=== PATIENT | female | born 1975 | race Caucasian/White ===

== ENCOUNTER 2023-11-07 13:13 | Outpatient (OUT) | payer MEDICAID, SELFPAY ==
--- NOTE | 2023-11-07 15:16 | RT_ITS ---
[facility] Test Date: 2023-11-07 Pat Name: YUSUF CARRILLO Department: Room: - Gender: Female Hospice Volunteer Coordinator: Jaren Barnett RRT : 1975 Requested By: CHERI MCKEON Order Number: [id number] Reading MD: Pantera Champagne Interpretive Statements Pulmonary function testing was completed according to ATS criteria. Findings were considered accurate and reproducible. Both pre- and post-bronchodilator values utilized for spirometry. Spirometry (based on pre-bronchodilator values): -FEV1/FVC: Low normal/Reduced @ 70% -FEV1: Normal @ 88% -FVC: Normal @ 100% -There is a partial bronchodilator response in FEV1 which meets >200mL increase but <12% change. Lung volumes by plethysmography (based on pre-bronchodilator values): -RV: Increased @ 155% -TLC: Increased @ 123% Diffusion capacity: -DLCO: Normal @ 10% when corrected for Hb 14g/dL Flow-volume loop: -Mild obstructive pattern Impressions: -Spirometry suggests mild obstruction with near positive bronchodilator response. An elevated RV and TLC suggest air trapping and hyperinflation respectively. The diffusion capacity is normal. Study consistent with asthma with partial loss of bronchodilator response vs. development of asthma-COPD overlap given smoking history. Clinical correlation required. Electronically Signed On 11-12-2023 7:28:14 EST by Pantera Champagne
[2023-11-07] MEDS: ALBUTEROL SULFATE 2.5 MG/3 ML VIAL NEB IH (15:43)
== END 2023-11-07 13:14 | disposition home or self-care (01) ==
PROVIDERS: PCP Family Medicine; Visit Provider Family Medicine
DX: J45.40 Moderate persistent asthma, uncomplicated (principal)
CPT/HCPCS: 36415; 85018; 94060; 94726; 94729; 99406

== ENCOUNTER 2023-12-31 14:23 | Outpatient (OUT) | payer MEDICAID, SELFPAY ==
--- NOTE | 2023-12-31 14:25 | CT_ITS ---
[address] [address] Patient Name: YUSUF CARRILLO MRN: [id number] date: 1975 Sex: F Assigned Patient Location: CT Current Patient Location: Accession/Order Number: [id number] Exam Date: 12/31/2023 14:32 Report Date: 01/01/2024 07:26 At the request of: TUAN BOLIVAR Procedure: CT lung screening low-dose EXAMINATION: CT lung screening low-dose HISTORY: Nicotine Dependence , chronic shortness of breath and cough COMPARISON: No relevant comparison available. TECHNIQUE: Axial, Coronal, and Sagittal images were created without the administration of IV contrast material. Dose reduction techniques were achieved by using automated exposure control and/or adjustment of mA and/or kV according to patient size and/or use of iterative reconstruction technique. FINDINGS: LUNGS: 5 mm nodule within anterior lateral right upper lobe at level of hilum. 5 mm nodule within posterior left lower lobe. A few scattered 4 mm pleural-based nodules. No overtly suspicious nodules, acute infiltrates, or significant chronic interstitial changes. PLEURA: No mass, effusion, or pneumothorax. VASCULATURE: No abnormality. VARGAS: No mass or pathologic adenopathy. MEDIASTINUM: No mass or pathologic adenopathy. CARDIAC: No enlargement, pericardial thickening, or pericardial effusion. AORTA: No aneurysm or dissection. CHEST WALL: No mass or axillary adenopathy BONES: No bone lesion or fracture. LIMITED ABDOMEN: No suspicious findings. Limited images of the upper abdomen. OTHER: Negative. CT/CT lung screening low-dose IMPRESSION: 1. Lung-RADS Category 3- Probably benign. Probably benign finding(s)- short term follow up suggested; includes nodules with a low likelihood of becoming a clinically active cancer. Six month LDCT. Electronically authenticated by: MARIN SERRATO Date: 01/01/2024 07:26
== END 2023-12-31 14:24 | disposition home or self-care (01) ==
LOC: CT 14:23
PROVIDERS: PCP Family Medicine; Visit Provider Internal Medicine
DX: F17.219 Nicotine dependence, cigarettes, with unspecified nicotine-induced disorders (principal); Z12.2 Encounter for screening for malignant neoplasm of respiratory organs
CPT/HCPCS: 71271

== ENCOUNTER 2024-07-26 12:44 | Outpatient (OUT) | payer MEDICAID, SELFPAY ==
--- NOTE | 2024-07-26 12:54 | CT_ITS ---
The [address] [address] Patient Name: YUSUF CARRILLO MRN: [id number] date: 1975 Sex: F Assigned Patient Location: CT Current Patient Location: CT Accession/Order Number: [id number] Exam Date: 07/26/2024 12:50 Report Date: 07/26/2024 14:03 At the request of: TUAN BOLIVAR Procedure: CT chest wo con EXAMINATION: CT chest wo con, 07/26/2024 12:50 PM EDT HISTORY: multiple pulmonary nodules COMPARISON: CT chest 12/31/2023. TECHNIQUE: CT scan of the chest was performed without IV contrast. CT dose reduction technique was used, including Automated Exposure Control. FINDINGS: CORONARY ARTERIES: Coronary calcifications are absent. Heart size is normal. No pericardial effusion. Normal thoracic vasculature. No thoracic lymphadenopathy. Central tracheobronchial tree is patent. No pleural effusion or pneumothorax. Stable 5 x 3 mm nodule in the right upper lobe on image 35, and stable 5 mm nodule in the left lower lobe on image 60. Other tiny nodules unchanged. Mild paraseptal emphysema. Bones and soft tissues: No suspicious bone findings. Partially imaged upper abdomen: Limited. Small sliding hiatal hernia CT/CT chest wo con IMPRESSION: Stable small pulmonary nodules. Lung-RADS 2 FINDINGS: Solid nodule(s): <6 mm or new <4 mm; part solid nodule(s) <6 mm total diameter on baseline screening; nonsolid nodule(s) (GGN): <20 mm or greater than/equal to 20 mm and unchanged or slowly growing; category 3 or 4 nodules unchanged for greater than/equal to 3 months. MANAGEMENT: Continue annual screening with LDCT in 12 months. Electronically authenticated by: HAILEY HORTON Date: 07/26/2024 14:03
== END 2024-07-26 12:45 | disposition home or self-care (01) ==
LOC: CT 12:44
PROVIDERS: PCP Family Medicine; Visit Provider Internal Medicine
DX: R91.8 Other nonspecific abnormal finding of lung field (principal)
CPT/HCPCS: 71250

== ENCOUNTER 2024-07-27 10:26 | Outpatient (OUT) | payer MEDICAID, SELFPAY ==
--- NOTE | 2024-07-27 10:29 | XR_ITS ---
The [address] [address] Patient Name: YUSUF CARRILLO MRN: [id number] date: 1975 Sex: F Assigned Patient Location: [facility] Current Patient Location: Accession/Order Number: [id number] Exam Date: 07/27/2024 10:52 Report Date: 07/28/2024 06:32 At the request of: CHERI MCKEON Procedure: XR DEXA axial skeleton EXAMINATION: XR DEXA axial skeleton HISTORY: Screening For Osteoporosis COMPARISON: No relevant comparison available. TECHNIQUE: Dual-energy X-ray absorptiometry (DXA) was performed. FINDINGS: SPINE ANALYSIS: Average bone mineral density is 1.298 g/cm2. T-score (standard deviation relative to young adult mean): 1.0 . HIP ANALYSIS: Lowest bone mineral density is within the right femoral neck, 0.885 g/cm2. T-score (standard deviation relative to young adult mean): -1.1 . XR/XR DEXA axial skeleton IMPRESSION: World Health Organization Classification: Osteopenia - Moderate Fracture Risk FRAX: Cannot calculate. Pharmacologic treatment recommendations * No uniform recommendation applies to all patients. Management plans must be individualized. * Consider initiating pharmacologic treatment in postmenopausal women and men >= 50 years of age who have the following: Primary fracture prevention: * T-score <= - 2.5 at the femoral neck, total hip, lumbar spine, 33% radius (some uncertainty with existing data) by DXA. * Low bone mass (osteopenia: T-score between - 1.0 and - 2.5) at the femoral neck or total hip by DXA with a 10-year hip fracture risk >= 3% or a 10-year major osteoporosis-related fracture risk >= 20% (i.e., clinical vertebral, hip, forearm, or proximal humerus) based on the [place]-adapted FRAXregistered model. Secondary fracture prevention: * Fracture of the hip or vertebra regardless of BMD [4, 5]. * Fracture of proximal humerus, pelvis, or distal forearm in persons with low bone mass (osteopenia: T-score between - 1.0 and - 2.5). The decision to treat should be individualized in persons with a fracture of the proximal humerus, pelvis, or distal forearm who do not have osteopenia or low BMD [12, 13]. Jesusita MS, Wood SL, Ladi KL, Elida EM, Carol KG, AJ, Christiana ES. The clinician's guide to prevention and treatment of osteoporosis. Osteoporos Int. 2021;33(10):9672-1957. doi: 10.1007/o03278-092-85552-e. Epub 2021Jan 31. Erratum in: Osteoporos Int. 2021May 02;: PMID: [id number]; PMCID: [id number]. Electronically authenticated by: MARIN SERRATO Date: 07/28/2024 06:32
--- NOTE | 2024-07-27 10:29 | MM_ITS ---
Patient Name: YUSUF CARRILLO MR#: [id number] : 1975 Exam Date: 07/27/2024 Ordering Doctor: DR CHERI MCKEON D.O. RADIOLOGY REPORT PROCEDURE: MM TOMOSYNTHESIS SCREENING BI COMPARISON: None. INDICATIONS: Screening Calculator Name NCI Breast Cancer Risk Assessment Tool 5 Year Breast Cancer Risk 0.80% Lifetime Breast Cancer Risk 7.10% Personal Breast Cancer No Personal Ovarian Cancer No Treatments None Family Cancers Aunt-maternal with breast cancer at age 45; Mother with cervical? cancer at age 30. LOCATION: [facility] BREAST COMPOSITION: The breasts are heterogeneously dense,which may obscure small masses. FINDINGS: DIAGNOSTIC CATEGORY 1--NEGATIVE. Scattered benign-appearing lymph nodes are present. RIGHT BREAST: No significant suspicious finding. LEFT BREAST: No significant suspicious finding. RECOMMENDATIONS: ROUTINE MAMMOGRAM AND CLINICAL EVALUATION IN 12 MONTHS. PLEASE NOTE: A NORMAL MAMMOGRAM DOES NOT EXCLUDE THE POSSIBILITY OF BREAST CANCER. A CLINICALLY SUSPICIOUS PALPABLE LUMP SHOULD BE BIOPSIED. Dictated by: Mitch Simeon MD on 07/27/2024 at 12:03 Approved by: Mitch Simeon MD on 07/27/2024 at 12:05
== END 2024-07-27 10:27 | disposition home or self-care (01) ==
LOC: MAMMO 10:26
PROVIDERS: PCP Family Medicine; Visit Provider Family Medicine
DX: Z12.31 Encounter for screening mammogram for malignant neoplasm of breast (principal); Z13.820 Encounter for screening for osteoporosis; Z80.3 Family history of malignant neoplasm of breast; Z80.8 Family history of malignant neoplasm of other organs or systems; M85.80 Other specified disorders of bone density and structure, unspecified site
CPT/HCPCS: 77063; 77067; 77080

== ENCOUNTER 2024-08-31 08:58 | Outpatient (OUT) | payer MEDICAID, SELFPAY ==
--- NOTE | 2024-08-31 09:02 | CT_ITS ---
The [address] [address] Patient Name: YUSUF CARRILLO MRN: [id number] date: 1975 Sex: F Assigned Patient Location: CT Current Patient Location: Accession/Order Number: [id number] Exam Date: 08/31/2024 09:10 Report Date: 09/01/2024 09:57 At the request of: CHERI MCKEON Procedure: CT soft tissue neck w con EXAMINATION: CT soft tissue neck w con HISTORY: Localized Swelling Mass Of Neck ; multiple lumps on neck increasing in size COMPARISON: No relevant comparison available. TECHNIQUE: Axial, Coronal, and Sagittal CT images created with IV contrast. Dose reduction techniques were achieved by using automated exposure control and/or adjustment of mA and/or kV according to patient size and/or use of iterative reconstruction technique. FINDINGS: NASOPHARYNX: No asymmetry of the fossae of Rosenmuller and torus tubarius. ORAL CAVITY: No visible mass. OROPHARYNX: No asymmetry of the facial and lingual tonsils. HYPOPHARYNX: No mass or other visible lesion. LARYNX: No mass or asymmetry of the vocal cords. SINUSES: No significant fluid or mucosal thickening. NECK GLANDS: No visible abnormality of the parotid, submandibular, and thyroid glands. LYMPH NODES: Small enhancing soft tissue structures corresponding to patient's palpable lumps which favor lymph nodes. Largest is 1.1 cm in length within posterior right lower neck. VASCULATURE: No suspicious abnormality. BONES: No significant osseous lesions. OTHER: No additional imaging findings. CT/CT soft tissue neck w con IMPRESSION: 1. Patient's palpable lumps correspond to small lymph nodes; no overtly suspicious characteristics. Consider ultrasound evaluation if palpable lumps continue to enlarge or don't resolve. Ultrasound-guided tissue sampling could be performed of the posterior lower right neck lymph node if needed. Electronically authenticated by: MARIN SERRATO Date: 09/01/2024 09:57
== END 2024-08-31 08:59 | disposition home or self-care (01) ==
LOC: CT 08:59
PROVIDERS: PCP Family Medicine; Visit Provider Family Medicine
DX: R22.1 Localized swelling, mass and lump, neck (principal)
CPT/HCPCS: 70491; Q9967

== ENCOUNTER 2024-10-27 14:08 | Outpatient (OUT) | payer MEDICAID, SELFPAY ==
[2024-10-27 14:30] LABS: Basophils Percent Auto 0.7 % (0.2-2.0); Eosinophils Absolute Auto 0.3 10^3/uL (0.0-0.7); Eosinophils Percent Auto 6.3 % (0.9-7.0); Hematocrit 45.5 % (36.0-48.0); Immature Granulocytes Abs Auto 0.02 10^3/uL (0.00-0.03); Immature Granulocytes Pct Auto 0.5 % (0.0-0.5); Lymphocytes Absolute Auto 0.9 10^3/uL (1.2-3.8); Lymphocytes Percent Auto 22.9 % (20.5-60.0); Mean Corpuscular Hemoglobin 32.5 pg (26.7-34.0); Mean Corpuscular Volume 98.5 fL (81.0-99.0); Monocytes Absolute Auto 0.3 10^3/uL (0.3-0.8); Monocytes Percent Auto 7.6 % (1.7-12.0); Neutrophils Absolute Auto 2.5 10^3/uL (1.4-6.5); Platelet Count 210 10^3/uL (150-450); Red Blood Count 4.62 10^6/uL (4.20-5.40); White Blood Count 4.1 10^3/uL (4.0-11.0)
[2024-10-30 15:07] LABS: Immunoglobulin E, Total 405 IU/mL (6-495)
== END 2024-10-27 14:09 | disposition home or self-care (01) ==
LOC: LAB 14:08
PROVIDERS: PCP Family Medicine; Visit Provider Internal Medicine
DX: J45.40 Moderate persistent asthma, uncomplicated (principal)
CPT/HCPCS: 36415; 82785; 85025